=== PATIENT | female | born 1960 | race Caucasian/White ===

== ENCOUNTER 2023-11-21 10:04 | Outpatient (CLI) | payer MEDICARE, SELFPAY ==
--- NOTE | ~2023-11-21 | DEXA_ITS ---
Bone Density Report Name: SHAKA MARINELLI Age: 63 Sex: Female Ethnicity: White Date of : 1960 Indication: postmenopausal; screening for osteoporosis; height loss; hysterectomy; Referring Provider: Renetta, Shagufta Study: Bone densitometry was performed. Exam Date: November 21, 2023 Accession number: [id number] Bone Density: Region BMD T-score Z-score Classification AP Spine (L1-L4) 1.371 2.9 4.8 Normal Femoral Neck (Left) 1.053 1.8 3.4 Normal Total Hip (Left) 1.171 1.9 3.1 Normal Femoral Neck (Right) 1.004 1.4 3.0 Normal Total Hip (Right) 1.145 1.7 2.9 Normal Total Hip Mean 1.158 1.8 3.0 Normal World Health Organization criteria for BMD impression classify patients as: Normal (T-score at or above -1.0), Osteopenia (T-score between -1.0 and -2.5), or Osteoporosis (T-score at or below -2.5). 10-year Fracture Risk: FRAX not reported because: All T-scores for Spine Total, Hip Total, Femoral Neck at or above -1.0 Previous Exams: Region Exam Age BMD T-score BMD Change BMD Change Date g/cm2 vs Baseline vs Previous AP Spine(L1-L4) 11/21/2023 63 1.371 2.9 0.086* 0.051 07/29/2017 57 1.320 2.5 0.035 0.018 09/03/2013 53 1.302 2.3 0.017 0.017 08/27/2009 49 1.285 2.2 Total Hip(Left) 11/21/2023 63 1.171 1.9 0.050* -0.006 07/29/2017 57 1.178 1.9 0.056 -0.039* 09/03/2013 53 1.217 2.3 0.095 0.095 08/27/2009 49 1.122 1.5 Total Hip(Right) 11/21/2023 63 1.145 1.7 -0.021 -0.031 07/29/2017 57 1.176 1.9 0.010 -0.068* 09/03/2013 53 1.245 2.5 0.079 0.079 08/27/2009 49 1.166 1.8 *Denotes significance at 95% confidence level, LSC for AP Spine = 0.022 g/cm2, LSC for Total Hip = 0.027 g/cm2 Clinical Information Provided by Patient: Has the following medical conditions: Hysterectomy Patient maximum height was 67 Menopause Age: 24 Drinks caffeinated beverages Onset of menses at age 10 Number of children 4 Impression: The patient has normal bone mass. No significant bone loss was observed. Discussion: LOW RISK OF FRACTURE; BONE DENSITY IS WELL ABOVE THE MINIMUM DESIRABLE LEVEL AND ABOVE AVERAGE FOR AGE AND SEX AT ALL SKELETAL SITES TESTED. This person's bone density is above expected limits for age and sex. This i
== END 2023-11-21 10:05 ==
LOC: MICIMG 10:05
PROVIDERS: PCP Nurse Practitioner; Visit Provider Nurse Practitioner
DX: Z78.0 Asymptomatic menopausal state (principal)
CPT/HCPCS: 77080